=== PATIENT | female | born 1955 | race Caucasian/White ===

== ENCOUNTER → 2020-06-26 15:09 | Outpatient (CLI) | payer OTHER, SELFPAY ==
[2020-06-26] MEDS: COVID-19 VACC #1, MRNA(MOD) 100 MCG/0.5 ML VIAL IM (15:21)
== END ==
PROVIDERS: PCP Internal Medicine Interventional Cardiology; Visit Provider Internal Medicine
DX: Z23 Encounter for immunization (principal)
CPT/HCPCS: 0011A; 91301

== ENCOUNTER → 2020-07-24 15:29 | Outpatient (CLI) | payer OTHER, SELFPAY ==
[2020-07-24] MEDS: COVID-19 VACC #2, MRNA(MOD) 100 MCG/0.5 ML VIAL IM (15:40)
== END ==
PROVIDERS: PCP Internal Medicine Interventional Cardiology; Visit Provider Internal Medicine
DX: Z23 Encounter for immunization (principal)
CPT/HCPCS: 0012A; 91301

== ENCOUNTER 2021-07-27 20:34 | Emergency (ER) | payer OTHER, SELFPAY ==
--- NOTE | 2021-07-27 20:37 | ED.GIBLEED ---
HPI - GI Bleed General Chief complaint: Abdominal Pain Stated complaint: blood in stool/bp high Time Seen by Provider: 07/27/21 20:37 History of Present Illness HPI Narrative: 65-year-old female nonsmoker with history of coronary artery disease and GERD presents with her in the chief complaint of 3 stools today that have become increasingly dark and loose. She denies any bright red blood. She denies the use of any blood thinners but does take aspirin. She is not dizzy nor weak or lightheaded. She denies any fever or chills. She denies any pain. She has had no chest pain or shortness of breath. She denies any bad food or change in medications. She states that about a week ago she had the stomach bug that is going around and was my only vomiting for least 24 hours. She denies any history of the same. Related Data Home Medications Medication Instructions Recorded Confirmed aspirin 81 mg tablet,delayed 81 mg PO DAILY 10/19/18 10/19/18 release (Adult Low Dose Aspirin) atenolol 25 mg tablet 25 mg PO DAILY 10/19/18 10/19/18 candesartan 16 mg tablet 16 mg PO DAILY 10/19/18 10/19/18 omeprazole 10 mg capsule,delayed 10 mg PO DAILY 10/19/18 10/19/18 release simvastatin 40 mg tablet 40 mg PO BEDTIME 10/19/18 10/19/18 Allergies Allergy/AdvReac Type Severity Reaction Status Date / Time lisinopril Allergy Cough Verified 07/27/21 20:43 Review of Systems Review of Systems Narrative: GENERAL: Denies chills, fatigue, malaise, fever, sweats. HEENT: Denies sinus pain, ear pain, sore throat, difficulty swallowing, dizziness. RESPIRATORY: Denies dyspnea, cough, wheezing, hemoptysis, sputum. CARDIOVASCULAR: Denies chest pain, palpitations, orthopnea, edema, GASTROINTESTINAL: See HPI : Denies dysuria, frequency, incontinence, hematuria, urinary retention. MUSCULOSKELETAL: denies weakness, joint pain, or bony pain SKIN: Denies rash, skin lesions, or other NEUROLOGIC: Denies weakness, headache, numbness, change in speech, confusion, seizures, incoordination. PSYCHIATRIC: No concerning psychosocial issues. 12 point review of systems is negative except for those stated above Patient History Social History Smoking Status: Never smoker Smoking Status: Never smoker Exam Narrative Exam Narrative: GENERAL: [65 year old patient appears stated age. Well-developed patient, in mild distress. HEAD: Atraumatic. Normocephalic. EYES: Pupils equal round and reactive. Extraocular motions intact. No scleral icterus. No injection or drainage. ENT: Nose without bleeding, purulent drainage. Throat without erythema, tonsillar hypertrophy or exudate. Airway patent. NECK: Trachea midline. Non tender CARDIOVASCULAR: Regular rate and rhythm without murmurs, gallops, or rubs. RESPIRATORY: Clear to auscultation. Breath sounds equal bilaterally. No wheezes, rales, or rhonchi. GASTROINTESTINAL: Abdomen soft, non-tender, nondistended. RECTAL: melena present. No BRBPR. No pain. Performed with patient's permission and female nursing automotive fleet supervisor at the bedside EXTREMITIES: No edema or joint tenderness. BACK: Nontender without deformity or crepitance. No flank tenderness. NEURO: AOx3. SKIN: No rash or erythema of visible areas Initial Vital Signs Initial Vital Signs: Vital Signs Pulse Rate 77 07/27/21 20:40 Blood Pressure 174/82 H 07/27/21 20:40 Pulse Oximetry 98 07/27/21 20:40 Course Orders Ordered: ED Orders 07/27/21 20:48 Complete Blood Count AUTO DIFF Stat Comprehensive Metabolic Panel Stat Prothrombin Time INR Stat Type and Screen Stat Discontinued Medications Pantoprazole Sodium (Pantoprazole 40 Mg Vial) 40 mg IV NOW ONE Stop: 07/27/21 20:43 Last Admin: 07/27/21 20:54 Dose: 40 mg Documented by: ATAYLOR Consultations Consultation #1: discussed with telephone interviewer Gen Surg (Petty). We have discussed the case including presentation, labs, vitals and medical history. We share the opinion that she is appropriate for discharge with follow up for outpatient workup. Vital Signs Vital signs: Vital Signs - 8 hr 07/27/21 20:40 07/27/21 20:41 07/27/21 21:00 Temperature 98.4 F Pulse Rate 77 87 65 Respiratory Rate 16 17 Blood Pressure 174/82 H 174/82 H 144/70 H Pulse Oximetry 98 98 98 07/27/21 21:30 07/27/21 21:32 Temperature Pulse Rate 65 72 Respiratory Rate 31 H 34 H Blood Pressure 164/81 H Pulse Oximetry 99 97 MDM - GI Bleed Lab Data Result diagrams: 07/27/21 20:48 07/27/21 20:48 Labs: Lab Results 07/27/21 07/27/21 07/27/21 Range/Units 20:48 20:48 20:48 WBC 8.6 (4.5-11.0) X10^3/uL RBC 4.65 (4.0-5.2) X10^6/uL Hgb 13.2 (12.0-16.0) g/dL Hct 39.6 (36-46) % MCV 85.2 (80-100) fL MCH 28.5 (26-34) PG MCHC 33.4 (30-36) % RDW 14.3 (11.6-14.8) % Plt Count 305 (150-400) X10^3/uL Neut % (Auto) 59.5 (50-75) % Lymph % (Auto) 29.4 (25-40) % [place] % (Auto) 8.9 (3-14) % Eos % (Auto) 1.3 L (2-4) % Baso % (Auto) 0.9 (0-2) % Neut # (Auto) 5100 (2050-4315) /uL Lymph # (Auto) 2500 (6177-7821) /uL [place] # (Auto) 800 (0-900) /uL Eos # (Auto) 100 (0-450) /uL Baso # (Auto) 100 (0-100) /uL PT (10.1-12.7) SECONDS INR (0.9-1.3) Sodium 141 (137-145) mmol/L Potassium 4.1 (3.4-5.1) mmol/L Chloride 108 H (98-107) mmol/L Carbon Dioxide 29 (22-32) mmol/L BUN 21 H (7-17) mg/dL Creatinine 0.70 (0.52-1.04) mg/dL Estimated GFR > 60.0 (>60) mL/min BUN/Creatinine Ratio 30.0 H (6-22) Glucose 101 (80-110) mg/dL Calcium 8.9 (8.4-10.2) mg/dL Total Bilirubin 0.5 (0.2-1.3) mg/dL AST 38 H (14-36) IU/L ALT 43 H (<35) IU/L Alkaline Phosphatase 106 (38-126) U/L Total Protein 7.3 (6.3-8.2) g/dL Albumin 4.3 (3.5-5.0) g/dL Globulin 3.0 (1.7-4.1) g/dL Albumin/Globulin Ratio 1.4 (1.0-2.8) Blood Type O Positive Antibody Screen Negative 07/27/21 Range/Units 20:48 WBC (4.5-11.0) X10^3/uL RBC (4.0-5.2) X10^6/uL Hgb (12.0-16.0) g/dL Hct (36-46) % MCV (80-100) fL MCH (26-34) PG MCHC (30-36) % RDW (11.6-14.8) % Plt Count (150-400) X10^3/uL Neut % (Auto) (50-75) % Lymph % (Auto) (25-40) % [place] % (Auto) (3-14) % Eos % (Auto) (2-4) % Baso % (Auto) (0-2) % Neut # (Auto) (0627-0137) /uL Lymph # (Auto) (1253-9006) /uL [place] # (Auto) (0-900) /uL Eos # (Auto) (0-450) /uL Baso # (Auto) (0-100) /uL PT 13.3 H (10.1-12.7) SECONDS INR 1.2 (0.9-1.3) Sodium (137-145) mmol/L Potassium (3.4-5.1) mmol/L Chloride (98-107) mmol/L Carbon Dioxide (22-32) mmol/L BUN (7-17) mg/dL Creatinine (0.52-1.04) mg/dL Estimated GFR (>60) mL/min BUN/Creatinine Ratio (6-22) Glucose (80-110) mg/dL Calcium (8.4-10.2) mg/dL Total Bilirubin (0.2-1.3) mg/dL AST (14-36) IU/L ALT (<35) IU/L Alkaline Phosphatase (38-126) U/L Total Protein (6.3-8.2) g/dL Albumin (3.5-5.0) g/dL Globulin (1.7-4.1) g/dL Albumin/Globulin Ratio (1.0-2.8) Blood Type Antibody Screen Point of Care Testing Stool Occult Blood Positive MDM Narrative Medical decision making narrative: Patient presents with 3 episodes of dark stool, minimal (if any) discomfort, stable vitals, no evidence of anemia or other significant lab abnormality. DIscussed with surgery, recommends follow up as outpatient and PPI BID. Patient understands and agrees with the plan. Return precautions discussed. Questions answered to their apparent satisfaction Discharge Plan Departure Patient Disposition: Home Clinical Impression: Acute GI bleeding Instructions: Gastrointestinal Bleeding Activity Restrictions/Additional Instructions: *You have been diagnosed with [mild gastrointestinal bleeding. As we discussed, your history and physical exam as well as vital signs and lab work are very reassuring and there is no indication that you need hospitalization or emergent procedure at this time *What to do: * as we discussed, please increase your omeprazole to twice daily until you follow-up with [facility]. Otherwise continue to take your regular medications as directed. *Please follow up with Dr. Dove at [facility] [place], call for an appointment. Let them know you were seen in the Emergency Department and that we ask that you be seen in follow up. We will electronically transmit a record of today's note *If you do not have a primary care provider please contact the [facility] Resource line at [phone]. They will ask some questions about your medical history and help get you set up with a doctor in the community. *Return to Emergency Department if you should have any new, worsening or concerning symptoms, such as [fever greater than 101 F, shaking chills, worsening pain, persistent vomiting or other bothersome symptoms] Prescriptions: No Action atenolol 25 mg tablet 25 mg PO DAILY 0RF aspirin [Adult Low Dose Aspirin] 81 mg tablet,delayed release (DR/EC) 81 mg PO DAILY 0RF simvastatin 40 mg tablet 40 mg PO BEDTIME 0RF omeprazole 10 mg capsule,delayed release(DR/EC) 10 mg PO DAILY 0RF candesartan 16 mg tablet 16 mg PO DAILY 0RF Referrals: Estiven Thomas MD [Primary Care Provider] - Burke Dove MD [Physician] -
[2021-07-27 20:40] VITALS: BP 174/82; PULSE 77; O2SAT 98
[2021-07-27 20:41] VITALS: BP 174/82; PULSE 87; RESP 16; TEMP 36.9; O2SAT 98; BMI 40.4
[2021-07-27] MEDS: PANTOPRAZOLE 40 MG VIAL IV (20:54)
[2021-07-27 21:00] VITALS: BP 144/70; PULSE 65; RESP 17; O2SAT 98
[2021-07-27 21:06] LABS: Add Manual Diff / Slide Review NO; Basophils Absolute Auto 100 /uL (0-100); Basophils Percent Auto 0.9 % (0-2); Eosinophils Absolute Auto 100 /uL (0-450); Eosinophils Percent Auto 1.3 % (2-4); Hematocrit 39.6 % (36-46); Hemoglobin 13.2 g/dL (12.0-16.0); Lymphocytes Absolute Auto 2500 /uL (1100-4500); Lymphocytes Percent Auto 29.4 % (25-40); Mean Corpuscular HGB Conc 33.4 % (30-36); Mean Corpuscular Hemoglobin 28.5 PG (26-34); Mean Corpuscular Volume 85.2 fL (80-100); Monocytes Absolute Auto 800 /uL (0-900); Monocytes Percent Auto 8.9 % (3-14); Neutrophils Absolute Auto 5100 /uL (1500-7000); Neutrophils Percent Auto 59.5 % (50-75); Platelet Count 305 X10^3/uL (150-400); Red Blood Cell Count 4.65 X10^6/uL (4.0-5.2); Red Cell Distribution Width 14.3 % (11.6-14.8); White Blood Cell Count 8.6 X10^3/uL (4.5-11.0)
[2021-07-27 21:08] LABS: INR 1.2 (0.9-1.3); Prothrombin Time 13.3 SECONDS (10.1-12.7)
[2021-07-27 21:13] LABS: Alanine Aminotransferase 43 IU/L (<35); Albumin 4.3 g/dL (3.5-5.0); Albumin Globulin Ratio 1.4 (1.0-2.8); Alkaline Phosphatase 106 U/L (38-126); Aspartate Aminotransferase 38 IU/L (14-36); Bilirubin Total 0.5 mg/dL (0.2-1.3); Blood Urea Nitrogen 21 mg/dL (7-17); Calcium 8.9 mg/dL (8.4-10.2); Carbon Dioxide 29 mmol/L (22-32); Chloride 108 mmol/L (98-107); Estimated Glomerular Filt Rate > 60.0 mL/min (>60); Glucose 101 mg/dL (80-110); HEMOLYSIS < 15 (0-50); Potassium 4.1 mmol/L (3.4-5.1); Sodium 141 mmol/L (137-145); Total Protein 7.3 g/dL (6.3-8.2)
[2021-07-27 21:30] VITALS: PULSE 65; RESP 31; O2SAT 99
[2021-07-27 21:32] VITALS: BP 164/81; PULSE 72; RESP 34; O2SAT 97
== END 2021-07-27 22:06 | disposition home or self-care (01) ==
PROVIDERS: Emergency Provider Emergency Medicine; PCP Internal Medicine Interventional Cardiology
DX: K92.2 Gastrointestinal hemorrhage, unspecified (principal); Z79.82 Long term (current) use of aspirin
CPT/HCPCS: 36415; 80053; 82272; 85025; 85610; 86850; 86900; 86901; 96374; 99284; C9113